=== PATIENT | male | born 1965 | race Caucasian/White ===

== ENCOUNTER 2016-11-19 06:34 | Day surgery (SDC) | payer BC ==
[2016-11-19] MEDS ORDERED: Lactated Ringers 1,000 ML IV SCH (06:45)
[2016-11-19] MEDS ORDERED: Midazolam 1 MG/ML 2 ML SDV IV ONE (08:00)
[2016-11-19] MEDS ORDERED: Lidocaine 2% 100 MG/5 ML Syringe IVPUSH ONE (08:00)
[2016-11-19] MEDS ORDERED: fentaNYL 100 MCG/2 ML SDV IV ONE (08:00)
[2016-11-19] MEDS ORDERED: Propofol 200 MG/20 ML SDV IV ONE (08:00)
--- NOTE | 2016-11-19 08:22 | PCM.OPNOTE ---
- General Post-Op/Procedure Note Date of Surgery/Procedure: 11/19/16 Operative Procedure(s): c scope Findings: normal colon Pre Op Diagnosis: screening Post-Op Diagnosis: normal colon Anesthesia Technique: MAC Primary Surgeon: Iron Henry Anesthesia Provider: Payal Wright Complications: None Condition: Good Free Text/Narrative:: see dictation
[2016-11-19 09:05] VITALS: BP 129/86
--- NOTE | 2016-11-19 09:30 | OR ---
DATE OF OPERATION: 11/19/2016 SURGEON: Iron Henry MD PROCEDURE PERFORMED: Colonoscopy. PREOPERATIVE DIAGNOSIS: Need for screening C-scope. POSTOPERATIVE DIAGNOSIS: Normal colon. INDICATIONS FOR PROCEDURE: This is a 51-year-old white male who presents for screening colonoscopy. He was offered and accepted same. DESCRIPTION OF OPERATION: After an excellent IV sedation was administered, digital rectal exam was performed. No marked abnormality was noted. The flexible colonoscope was inserted and advanced to the cecum without difficulty. The following findings were noted. Ascending colon, unremarkable. Transverse colon, unremarkable. Descending colon, unremarkable. Sigmoid and rectum, unremarkable. Colon was deflated as the scope was removed. The patient tolerated the procedure well and was taken to recovery room in good condition. Repeat colonoscopy in 10 years. /[id number] SHAUN/DONNELLL
== END 2016-11-19 09:35 | disposition home or self-care (01) ==
LOC: FB.SDS 06:34
PROVIDERS: ATTEND Surgery
DX: Z12.11 Encounter for screening for malignant neoplasm of colon (principal)
CPT/HCPCS: 45378; J2250; J2704; J3010; J7120

== ENCOUNTER 2017-01-12 06:48 | Day surgery (SDC) | payer BC ==
[2017-01-12] MEDS ORDERED: Lactated Ringers 1,000 ML IV SCH (07:30)
[2017-01-12] MEDS ORDERED: Dexamethasone 4 MG/ML 5 ML MDV IVPUSH ONE (08:00)
[2017-01-12] MEDS ORDERED: Ketorolac 30 MG/ML SDV IVPUSH ONE (08:00)
[2017-01-12] MEDS ORDERED: ePHEDrine/Normal Saline 50 MG/5 ML Syringe IV ONE (08:00)
[2017-01-12] MEDS ORDERED: Ondansetron 4 MG/2 ML SDV IVPUSH ONE (08:00)
[2017-01-12] MEDS ORDERED: ceFAZolin 2 GM in Premix Bag 1 BAG IV ONE (08:00)
[2017-01-12] MEDS ORDERED: Propofol 200 MG/20 ML SDV IV ONE (08:00)
[2017-01-12] MEDS ORDERED: fentaNYL 100 MCG/2 ML SDV IV ONE (08:00)
[2017-01-12] MEDS ORDERED: Midazolam 1 MG/ML 2 ML SDV IV ONE (08:00)
[2017-01-12] MEDS ORDERED: Lactated Ringers 1,000 ML IV ONE (08:00)
[2017-01-12] MEDS ORDERED: HYDROmorphone 2 MG/ML SDV IV ONE (08:00)
[2017-01-12] MEDS ORDERED: Bupivacaine 0.5% 30 ML SDV ONE (08:21)
[2017-01-12] MEDS ORDERED: Lidocaine 1% with EPINEPHrine 1:100,000 20 ML MDV ONE (08:22)
--- NOTE | 2017-01-12 09:02 | PCM.OPNOTE ---
- General Post-Op/Procedure Note Date of Surgery/Procedure: 01/12/17 Operative Procedure(s): rih repair with mesh Findings: indirect hernia Pre Op Diagnosis: rih. without gangrene or obstruction Post-Op Diagnosis: Same Anesthesia Technique: General LMA, Local (7 ml 1 % lido with epi/0.5% buvipicaine) Primary Surgeon: Iron Henry Anesthesia Provider: Tayo Liu Pathology: none Complications: None Condition: Good Free Text/Narrative:: see dictation
[2017-01-12] MEDS ORDERED: Acetaminophen/HYDROcodone 325-5 MG Tab PO PRN (09:03)
--- NOTE | 2017-01-12 12:15 | OR ---
DATE OF OPERATION: 01/12/2017 SURGEON: Iron Henry MD PROCEDURE PERFORMED: Right inguinal hernia repair. PREOPERATIVE DIAGNOSES: Right inguinal hernia without obstruction or gangrene. POSTOPERATIVE DIAGNOSIS: Right inguinal hernia without obstruction or gangrene. INDICATIONS FOR PROCEDURE: This is a 51-year-old white male, who presents with a symptomatic right inguinal hernia. He was offered and accepted repair. INTRAOPERATIVE FINDINGS: Are as follows: An indirect hernia was noted. This was repaired with a Bard mesh PerFix plug, size large, reference #[id number], lot number [id number] with an expiration date of 2020-04-21 and was fixed with an Opti-Fix lot number [id number] reference #[id number] with an expiration date 05-21, and also 7 mL of our local mixture was used which was a 0% bupivacaine mixed in a one-to-one ratio with 1% lidocaine with epinephrine. DESCRIPTION OF OPERATION: After an excellent LMA anesthetic was administered, the patient was prepped and draped in usual sterile manner. The area of the planned incision was infiltrated with our local. An incision was then made with a #15 scalpel blade. The underlying subcu fat was divided as well as Marco's fascia with electrocautery. Superficial inferior epigastric vessels were clamped, divided, and tied with 2-0 Vicryl ties. The aponeurosis of the external oblique was exposed. More local was infiltrated. A shayan was made through the external oblique and carried out through the external ring. The cord was then skeletonized after retracting back the aponeurosis, it was controlled with a 1/4-inch [place] drain. The ilioinguinal nerve was identified and kept free from harm. A cord lipoma was reduced as was the hernia sac, which was twisted on itself, suture-ligated and then excised. The defect in the inguinal canal was then passed with a large plug which was tacked to the inguinal ligament as well as the transversalis fascia on the floor of the inguinal canal with interrupted 2-0 Prolene. 2-0 Prolene was then used to place the keyhole mesh on the floor of the canal and this was tacked along the inguinal ligament starting at the level of the symphysis pubis and coming lateral to the internal ring. The keyhole itself was closed with a running 2-0 Prolene as well and then the mesh was tacked to the floor of the canal. The area was irrigated. The aponeurosis was closed with a running 3-0 Vicryl, 3-0 Vicryl was used to approximate Marco's fascia, and 3-0 Vicryl was used to close the skin. Needle, sponge, and instrument counts were reported as correct. The patient was taken to recovery room in good condition. /[id number] /MODL
[2017-01-12 12:27] VITALS: BP 109/68
== END 2017-01-12 11:10 | disposition home or self-care (01) ==
LOC: FB.SDS 06:48
PROVIDERS: ATTEND Surgery
DX: K40.90 Unilateral inguinal hernia, without obstruction or gangrene, not specified as recurrent (principal); I10 Essential (primary) hypertension; E78.5 Hyperlipidemia, unspecified; Z79.82 Long term (current) use of aspirin; Z79.899 Other long term (current) drug therapy; Z72.89 Other problems related to lifestyle
CPT/HCPCS: 49505; A9270; C1781; J0690; J1100; J1170; J1885; J2250; J2405; J2704; J3010; J7120